=== PATIENT | female | born 1990 | race African-American/Black ===

== ENCOUNTER 2017-11-14 09:08 | Emergency (ER) | payer SELFPAY, OTHER ==
[2017-11-14] MEDS: IV NORMAL SALINE 1000ML BAG 1,000 ML IV ×4 (10:33→11:43)
[2017-11-14] MEDS: LIDO:MAALOX:DONNATAL 1:1:1 15 ML SINGLE DOSE SWSW ×2 (10:33)
[2017-11-14 10:42] LABS: ADD MAN DIFF? NO
[2017-11-14] MEDS ORDERED: CONTRAST GIVEN MC ×2 (10:45)
[2017-11-14 10:47] LABS: BASO # 0.1 x10^3/uL (0.0-0.2); BASO % 1 % (0-3); EOS % 0 % (0-3); HEMATOCRIT 40.9 % (36.0-47.0); HEMOGLOBIN 14.2 g/dL (12.0-15.5); LYMPH % 22 % (24-48); MEAN CORPUSCULAR HEMOGLOBIN 31 pg (25-35); MEAN CORPUSCULAR HGB CONC 35 g/dL (31-37); MEAN CORPUSCULAR VOLUME 91 fL (79-100); MONO # 1.1 x10^3/uL (0.0-1.1); MONO % 13 % (0-9); NEUT # 5.7 x10^3uL (1.8-7.7); NEUT % 64 % (31-73); PLATELET COUNT 238 x10^3/uL (140-400); RED BLOOD COUNT 4.52 x10^6/uL (3.50-5.40); RED CELL DISTRIBUTION WIDTH 12.8 % (11.5-14.5); WHITE BLOOD COUNT 8.9 x10^3/uL (4.0-11.0)
[2017-11-14 10:54] LABS: NEG OBC SER NEG; POS OBC SER POS; PREG TEST PT QUAL NEGATIVE (NEG)
[2017-11-14 10:55] LABS: ANION GAP 13 (6-14); BLOOD UREA NITROGEN 6 mg/dL (7-20); CALCIUM 9.4 mg/dL (8.5-10.1); CARBON DIOXIDE 25 mmol/L (21-32); CHLORIDE 102 mmol/L (98-107); CREATININE 0.8 mg/dL (0.6-1.0); GFR 105.8; GLUCOSE 99 mg/dL (70-99); POTASSIUM 3.4 mmol/L (3.5-5.1); SODIUM 140 mmol/L (136-145)
[2017-11-14 10:59] LABS: INR 1.1 (0.8-1.1); PARTIAL THROMBOPLASTIN TIME 26 SEC (24-38); PROTHROMBIN TIME PATIENT 13.7 SEC (11.7-14.0)
[2017-11-14 11:00] LABS: ALBUMIN 3.9 g/dL (3.4-5.0); ALK PHOS 52 U/L (46-116); ALT (SGPT) 15 U/L (14-59); AST (SGOT) 13 U/L (15-37); DIRECT BILIRUBIN 0.1 mg/dL (0.0-0.2); LIPASE 43 U/L (73-393); TOTAL BILIRUBIN 0.3 mg/dL (0.2-1.0)
[2017-11-14] MEDS: IOHEXOL 300 MG/ML 100ML VIAL. IV ×2 (11:08)
[2017-11-14 11:14] LABS: CKMB INDEX 0.6 % (0-4); CKMB MASS 0.5 ng/mL (0.0-3.6); CREATINE KINASE 89 U/L (26-192)
[2017-11-14 12:54] LABS: BILIRUBIN,URINE NEGATIVE (NEG); CLARITY,URINE CLEAR; COLOR,URINE YELLOW; GLUCOSE,URINE NEGATIVE (NEG); NITRITE,URINE NEGATIVE (NEG); PH,URINE 6.5; PROTEIN,URINE NEGATIVE (NEG-TRACE); UROBILINOGEN,URINE 0.2 mg/dL (0.2 mg/dL)
[2017-11-14 13:02] LABS: BARBITURATES NEG (NEG); BENZODIAZEPINES NEG (NEG); CANNABINOIDS NEG (NEG); COCAINE NEG (NEG); METHADONE NEG (NEG); OPIATES NEG (NEG); PHENCYCLIDINE POS (NEG)
[2017-11-14 13:03] LABS: AMPHETAMINE/METHAMPHETAMINE POS (NEG); ETHANOL, URINE NEG (NEG)
[2017-11-14 13:11] LABS: BACTERIA,URINE FEW /HPF (0-FEW); SQUAMOUS EPITHELIAL CELL,UR MOD /LPF; WBC,URINE OCC /HPF (0-4)
== END 2017-11-14 13:25 | disposition home or self-care (01) ==
LOC: ER 09:08
DX: F16.10 Hallucinogen abuse, uncomplicated (principal); R10.13 Epigastric pain; Z90.49 Acquired absence of other specified parts of digestive tract
CPT/HCPCS: 36415; 74177; 80048; 80076; 80307; 81001; 82553; 83690; 84703; 85025; 85610; 85730; 93005; 96360; 96361; 99285-25; J7030; Q9967

== ENCOUNTER 2018-03-30 02:43 | Emergency (ER) | payer SELFPAY ==
[2018-03-30] MEDS: cefTRIAXone IM 250 MG VIAL IM (05:05)
[2018-03-30] MEDS: AZITHROMYCIN 250 MG TABLET. PO (05:05)
[2018-03-31 14:25] LABS: CHLAMYDIA PROBE Negative (Negative); GC PROBE Negative (Negative)
== END 2018-03-30 05:18 | disposition home or self-care (01) ==
LOC: ER 02:43
DX: N89.8 Other specified noninflammatory disorders of vagina (principal)
CPT/HCPCS: 87491; 87591; 96372; 99284; J0696; Q0111; Q0144

== ENCOUNTER 2020-04-19 05:49 | Emergency (ER) | payer SELFPAY ==
[~2020-04-19] VITALS: Ht 142.2 cm; Wt 40.0 kg
[2020-04-19 05:52] VITALS: BP 134/75
--- NOTE | 2020-04-19 07:08 | PHYS DOC ---
Past Medical History Past Medical History: No Pertinent History Past Surgical History: Appendectomy, Tonsillectomy Smoking Status: Current Every Day Smoker Alcohol Use: Heavy Additional Information: DRINKS ETOH DAILY PER PT Drug Use: None Social History Narrative: HX OF PCP. DENIES IN TRIAGE General Adult EDM: Chief Complaint: TOE PROBLEM HPI: HPI: Patient is a 30 year old female who presented to ER today for evaluation of right foot pain. Patient said a refrigerator fell onto her right foot 2 days ago because of pain, she has been able to walk but with pain. Patient denies any other injury. Review of Systems: Review of Systems: Constitutional: Denies fever or chills. [] Eyes: Denies change in visual acuity. [] HENT: Denies nasal congestion or sore throat. [] Respiratory: Denies cough or shortness of breath. [] Cardiovascular: Denies chest pain or edema. [] GI: Denies abdominal pain, nausea, vomiting, bloody stools or diarrhea. [] : Denies dysuria. [] Musculoskeletal: Denies back pain , positive for right foot pain. Integument: Denies rash. [] Neurologic: Denies headache, focal weakness or sensory changes. [] Endocrine: Denies polyuria or polydipsia. [] Lymphatic: Denies swollen glands. [] Psychiatric: Denies depression or anxiety. [] Heart Score: Risk Factors: Risk Factors: DM, Current or recent (<one month) smoker, HTN, HLP, family history of CAD, obesity. Risk Scores: Score 0 - 3: 2.5% MACE over next 6 weeks - Discharge Home Score 4 - 6: 20.3% MACE over next 6 weeks - Admit for Clinical Observation Score 7 - 10: 72.7% MACE over next 6 weeks - Early Invasive Strategies Allergies: Allergies: Allergies Coded Allergies Type Severity Reaction Last Updated Verified No Known Drug Allergies 08/31/13 No Physical Exam: PE: Constitutional: Well developed, well nourished, no acute distress, non-toxic appearance. [] HENT: Normocephalic, atraumatic, bilateral external ears normal, nose normal. [] Eyes: PERRLA, EOMI, conjunctiva normal, no discharge. [] Neck: Normal range of motion, no tenderness, supple, no stridor. [] Cardiovascular:Heart rate regular rhythm, no murmur [] Lungs & Thorax: Bilateral breath sounds clear to auscultation [] Abdomen: Bowel sounds normal, soft, no tenderness, no masses, no pulsatile masses. [] Skin: Warm, dry, no erythema, no rash. [] Back: No tenderness, no CVA tenderness. [] Extremities: No tenderness, no cyanosis, no clubbing, ROM intact, no edema. There is no swelling no contusion on the right foot. Neurologic: Alert and oriented X 3, normal motor function, normal sensory function, no focal deficits noted. [] Psychologic: Affect normal, judgement normal, mood normal. [] Current Patient Data: Vital Signs: Vital Signs Date Time Temp Pulse Resp B/P (MAP) Pulse Ox O2 Delivery O2 Flow Rate FiO2 04/19/20 05:52 98.3 84 20 134/75 (94) 99 Room Air 98.3 EKG: EKG: [] Radiology/Procedures: Radiology/Procedures: [][facility] [address] [place] [address] IMAGING REPORT Signed PATIENT: PONCHO BHATIA ACCOUNT: [id number] : 1990 LOCATION: ER AGE: 30 SEX: F EXAM STATUS: REG ER ORD. PHYSICIAN: RAFFAELE FRANCES DO REASON: RIGHT FOOT PAIN AFTER A REFRIGERATOR FELL ON IT 2 DAYS AGO PROCEDURE: FOOT RIGHT 3V FOOT RIGHT 3V DATE: 04/19/2020 6:39 AM INDICATION: RIGHT FOOT PAIN AFTER A REFRIGERATOR FELL ON IT 2 DAYS AGO COMPARISON: None. FINDINGS: Bones: There is no evidence of acute fracture or dislocation. Hallux valgus. Joints: The joint spaces are normal. Miscellaneous: None. IMPRESSION: No evidence of acute fracture. Electronically signed by: Roberto Colin MD (04/19/2020 7:13 AM) [id number] DICTATED and SIGNED BY: ROBERTO COLIN MD DATE: 04/19/20 0713 Course & Med Decision Making: Course & Med Decision Making Pertinent Labs and Imaging studies reviewed. (See chart for details) [] Dragon Disclaimer: Dragon Disclaimer: This electronic medical record was generated, in whole or in part, using a voice recognition dictation system. Departure Departure Impression: Primary Impression: Foot pain, right Disposition: 01 HOME, SELF-CARE Condition: STABLE Referrals: NO PCP (PCP) follow up with your doctor as needed Patient Instructions: Foot Contusion Scripts No Active Prescriptions or Reported Meds Justicifation of Admission Dx: Justifications for Admission: Justification of Admission Dx: N/A RAFFAELE FRANCES DO Apr 19, 2020 07:08
--- NOTE | 2020-04-19 07:15 | RAD ---
FOOT RIGHT 3V DATE: 04/19/2020 6:39 AM INDICATION: RIGHT FOOT PAIN AFTER A REFRIGERATOR FELL ON IT 2 DAYS AGO COMPARISON: None. FINDINGS: Bones: There is no evidence of acute fracture or dislocation. Hallux valgus. Joints: The joint spaces are normal. Miscellaneous: None. IMPRESSION: No evidence of acute fracture. Electronically signed by: Roberto Jin MD (04/19/2020 7:13 AM) [id number]
== END 2020-04-19 08:05 | disposition home or self-care (01) ==
LOC: ER 05:49
DX: M79.671 Pain in right foot (principal); F17.200 Nicotine dependence, unspecified, uncomplicated; F10.10 Alcohol abuse, uncomplicated; Z90.89 Acquired absence of other organs
CPT/HCPCS: 73630; 99283

== ENCOUNTER 2021-08-06 00:29 | Emergency (ER) | payer SELFPAY ==
[~2021-08-06] VITALS: Ht 149.9 cm; Wt 61.8 kg
--- NOTE | 2021-08-06 01:07 | PHYS DOC ---
Past Medical History Past Medical History: No Pertinent History Past Surgical History: Appendectomy, Tonsillectomy Smoking Status: Current Every Day Smoker Alcohol Use: Heavy Drug Use: None, Marijuana General Adult EDM: Chief Complaint: Nausea and vomiting HPI: HPI: Patient is a 31 year old patient with alcohol use disorder and states today after vomiting about 16-17 times. Patient says at 1 point the vomit was red but was not sure if it was blood. Patient states that she has been having fevers and chills as well. Patient also states that she has been having chest pain in the center of her chest. It is worse with taking a deep breath. Patient also endorses headaches. Patient also endorses a sense of weakness and generalized fatigue. Patient states that she did have at least a few beers today before work when she woke up. Patient also endorses smoking marijuana every day. Patient states that she also uses other drugs but selling to say which ones and one her last use was. Patient is not vaccinated. Patient is unaware of any COVID-19 exposures. Review of Systems: Review of Systems: Constitutional: Says fevers and chills Eyes: Denies redness or eye pain HENT: Denies nasal congestion or sore throat Respiratory: Denies cough no shortness of breath Cardiovascular: Denies palpitations but endorses chest pain GI: Denies abdominal pain, endorses nausea vomiting : Denies dysuria or hematuria Musculoskeletal: Denies back pain or joint pain Integument: Denies rash or skin lesions Neurologic: Denies headache, focal weakness or sensory changes Complete systems were reviewed and found to be within normal limits, except as documented in this note. Heart Score: C/O Chest Pain: Yes HEART Score for Chest Pain: HEART Score for Chest Pain Response (Comments) Value History Slighlty/Non-Suspicious 0 Age < 45 0 Risk Factors No Risk Factors 0 Total 0 Risk Factors: Risk Factors: DM, Current or recent (<one month) smoker, HTN, HLP, family history of CAD, obesity. Risk Scores: Score 0 - 3: 2.5% MACE over next 6 weeks - Discharge Home Score 4 - 6: 20.3% MACE over next 6 weeks - Admit for Clinical Observation Score 7 - 10: 72.7% MACE over next 6 weeks - Early Invasive Strategies Allergies: Allergies: Allergies Coded Allergies Type Severity Reaction Last Updated Verified No Known Drug Allergies 08/31/13 No Physical Exam: PE: Constitutional: Well developed, well nourished, no acute distress, non-toxic appearance HENT: Normocephalic, atraumatic Eyes: PERRL, EOMI, conjunctiva normal, no discharge Neck: Normal range of motion, no tenderness, supple Lungs & Thorax: No respiratory distress, equal chest rise and fall Abdomen: Soft, no tenderness Skin: Warm, dry, no erythema, no rash Back: No tenderness, no CVA tenderness Extremities: No tenderness, ROM intact, no edema Neurologic: Alert and oriented X 3, normal motor function, normal sensory function, no focal deficits noted Psychologic: Affect normal, judgment normal, appears intoxicated EKG: EK: Sinus rhythm rate of 78 bpm, J-point elevation in leads II, V4, V5, V6, T wave inversions in V1, normal axis, FL 142 ms QRS 80 ms, QT/QTc 336/36 ms Radiology/Procedures: Radiology/Procedures: [] Course & Med Decision Making: Course & Med Decision Making 31-year-old female patient past medical history of alcohol abuse since today with persistent nausea and vomiting. Patient states that she did consume a lcohol today but states she only drank 3-4 beers before work. Patient will states that she looks marijuana every day. Patient is not vaccinated for COVID- 19 and endorses generalized weakness, chills, headache, chest pain, shortness of breath. Patient stable for discharge with outpatient follow-up with PCP/GI. GI referral provided. Discussed findings and plan with patient, who acknowledges understanding and agreement. April Disclaimer: April Disclaimer: This electronic medical record was generated, in whole or in part, using a voice recognition dictation system. Departure Departure Impression: Primary Impression: Nausea & vomiting Qualified Codes: R11.2 - Nausea with vomiting, unspecified Disposition: HOME / SELF CARE / HOMELESS Condition: STABLE Referrals: NO PCP (PCP) BESS KUHN MD Patient Instructions: Clear Liquid Diet, [id number], Nausea and Vomiting, [id number] Scripts Ondansetron (ONDANSETRON ODT) 4 Mg Tab.rapdis 1 TAB PO PRN Q6-8HRS PRN for NAUSEA, #16 TAB Prov: DIANDRA MOLINA DO 08/06/21 DIANDRA MOLINA DO Aug 06, 2021:07
[2021-08-06] MEDS ORDERED: IV NORMAL SALINE 1000ML BAG 1,000 ML IV ONE (01:15)
[2021-08-06] MEDS ORDERED: ONDANSETRON PF 4 MG/2 ML VIAL. IVP ONE (02:00)
[2021-08-06] MEDS ORDERED: FAMOTIDINE 20 MG/2 ML VIAL IVP ONE (02:00)
[2021-08-06] MEDS ORDERED: MULTIVIT INFUSN,ADULT 4,VIT K 10 ML, THIAMINE INJ 100 MG, FOLIC ACID INJ 1 MG in IV NOR... IV ONE (02:00)
[2021-08-06 02:13] LABS: BASO # 0.1 x10^3/uL (0.0-0.2); BASO % 2 % (0-3); EOS # 0.1 x10^3/uL (0.0-0.7); EOS % 1 % (0-3); HEMATOCRIT 41.1 % (36.0-47.0); HEMOGLOBIN 14.2 g/dL (12.0-15.5); LYMPH # 2.2 x10^3/uL (1.0-4.8); LYMPH % 23 % (24-48); MEAN CORPUSCULAR HEMOGLOBIN 32 pg (25-35); MEAN CORPUSCULAR HGB CONC 35 g/dL (31-37); MEAN CORPUSCULAR VOLUME 92 fL (79-100); MONO # 1.1 x10^3/uL (0.0-1.1); MONO % 11 % (0-9); NEUT # 6.3 x10^3/uL (1.8-7.7); NEUT % 64 % (31-73); PLATELET COUNT 234 x10^3/uL (140-400); RED BLOOD COUNT 4.48 x10^6/uL (3.50-5.40); WHITE BLOOD COUNT 9.8 x10^3/uL (4.0-11.0)
[2021-08-06 02:24] LABS: CALCIUM 8.5 mg/dL (8.5-10.1); CREATININE 0.8 mg/dL (0.6-1.0); GFR 102.6; POTASSIUM 4.2 mmol/L (3.5-5.1)
[2021-08-06 02:29] LABS: INFLUENZA A PATIENT NEGATIVE (NEGATIVE); INFLUENZA B PATIENT NEGATIVE (NEGATIVE)
[2021-08-06 02:29] LABS: ALBUMIN 3.6 g/dL (3.4-5.0); MAGNESIUM 1.8 mg/dL (1.8-2.4); TOTAL BILIRUBIN 0.4 mg/dL (0.2-1.0); TOTAL PROTEIN 7.2 g/dL (6.4-8.2)
--- NOTE | 2021-08-06 03:18 | EKG ---
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
[2021-08-06] MEDS ORDERED: ONDA4TAB12 PO (05:41)
[2021-08-06 05:52] VITALS: BP 113/62
--- NOTE | 2021-08-08 14:25 | NUR ---
IP: Attempted to contact pt concerning covid results. Phone number provided is not in service.
== END 2021-08-06 06:15 | disposition home or self-care (01) ==
LOC: ER 00:29
DX: R11.2 Nausea with vomiting, unspecified (principal); Z20.822 Contact with and (suspected) exposure to COVID-19; F17.200 Nicotine dependence, unspecified, uncomplicated; Z90.49 Acquired absence of other specified parts of digestive tract; F10.20 Alcohol dependence, uncomplicated; Y90.9 Presence of alcohol in blood, level not specified
CPT/HCPCS: 36415; 80053; 83690; 83735; 84484; 85025; 87426; 87804; 93005; 96365; 96375; 99285; G0480; J2405; J3411; J3490; J7030; U0003; U0005